=== PATIENT | male | born 1995 | race Hispanic/Latino ===

== ENCOUNTER 2020-03-06 18:46 | Emergency (ER) | payer SELFPAY ==
[2020-03-06] MEDS ORDERED: LIDOCAINE 1% MPF 5 ML VIAL ONE (19:52)
--- NOTE | 2020-03-06 20:05 | ER ---
Nurse's Notes [facility] Name: Pedro Keating Age: 24 yrs Sex: Male : 1995 Arrival Date: 03/06/2020 Time: 18:50 Bed 10 Private MD: Diagnosis: Cutaneous abscess right ear lobe Presentation: 03/06 19:04 Chief complaint: Patient states: FRIDAY MY EARLOBE STARTED HURTING. THEN I NOTICE rv THAT IT IS SWELLING. HURTS MY THROAT TOO. DENIES FEVER AND PAIN INSIDE THE EAR AND AROUND THE EAR. Coronavirus screen: Proceed with normal triage. Ebola Screen: No symptoms or risks identified at this time. Initial Sepsis Screen: Does the patient meet any 2 criteria? No. Patient's initial sepsis screen is negative. Does the patient have a suspected source of infection? No. Patient's initial sepsis screen is negative. Risk Assessment: Do you want to hurt yourself or someone else? Patient reports no desire to harm self or others. Onset of symptoms was March 04, 2020 at 08:00. 19:04 Method Of Arrival: Ambulatory 19:04 Acuity: CHERIE 4 rv Triage Assessment: 19:06 General: Appears comfortable, Behavior is calm, cooperative. Pain: Complains of pain in rv right ear lobe Pain currently is 4 out of 10 on a pain scale. Neuro: Level of Consciousness is awake, alert, obeys commands, Oriented to person, place, time, situation. Cardiovascular: Patient's skin is warm and dry. Respiratory: Airway is patent. Derm: SWELLING OF THE RIGHT EARLOBE. Historical: - Allergies: 19:06 No Known Allergies; rv - Home Meds: 19:06 None [Active]; rv - PMHx: 19:06 None; rv - PSHx: 19:06 None; rv - Immunization history:: Adult Immunizations up to date. - Social history:: Smoking status: unknown. Screenin:36 Abuse screen: Denies threats or abuse. Denies injuries from another. Nutritional rv screening: No deficits noted. Tuberculosis screening: No symptoms or risk factors identified. Fall Risk None identified. Assessment: 20:09 Reassessment: awaiting for the patient's spouse to take him home. rv Vital Signs: 19:02 BP 130 / 72; Pulse 90; Resp 18; Pulse Ox 98% ; Weight 95.25 kg; Height 5 ft. 9 in. rv (175.26 cm); Pain 4/10; 20:08 BP 119 / 79; Pulse 76; Resp 17; Temp 98.9; Pulse Ox 99% on R/A; rv 19:02 Body Mass Index 31.01 (95.25 kg, 175.26 cm) rv ED Course: 18:50 Patient arrived in ED. mr 19:06 Triage completed. rv 19:06 Arm band placed on Patient placed in the treatment room, on a stretcher, Patient rv notified of wait time. 19:19 Frandy Grewal PA is PHCP. jr8 19:19 Sunny Ziegler MD is Attending Physician. jr8 19:36 Samir Maynard, DAVID is Primary Nurse. rv 19:36 Patient has correct armband on for positive identification. Pulse ox on. NIBP on. rv 19:37 Assist provider with I \T\ D: of an abscess on right earlobe Set up I\T\D tray. Performed rv by Frandy ESTRELLA Wound packed. iodoform gauze, Dressing with 4X4s, tape Patient tolerated well. 20:08 Patient did not have IV access during this emergency room visit. rv Administered Medications: 19:46 Drug: Lidocaine (1 %) 5 mg Route: Infiltration; rv 20:08 Follow up: Response: No adverse reaction rv 20:07 Drug: Zofran (Ondansetron) 4 mg Route: PO; rv 20:09 Follow up: Response: Medication administered at discharge. rv 20:08 Drug: morphine 4 mg {Note: rass 0.} Route: IM; Site: left deltoid; rv 20:09 Follow up: Response: Medication administered at discharge. rv Outcome: 20:04 Discharge ordered by . jr8 20:08 Discharged to home ambulatory, with family. rv 20:08 Condition: good 20:08 Discharge instructions given to patient, Instructed on discharge instructions, follow up and referral plans. medication usage, wound care, Demonstrated understanding of instructions, follow-up care, medications, wound care. 20:09 Prescriptions given X 2. rv 20:17 Patient left the ED. rv Signatures: Suzy Lopez mr Frandy Grewal PA PA jr8 Samir Maynard, RN RN rv Corrections: (The following items were deleted from the chart) 19:46 19:37 No provider procedures requiring assistance completed. rv rv 20:08 19:37 Assist provider with I \T\ D: of an abscess on right earlobe Set up I\T\D tray. rv Performed by Frandy ESTRELLA Wound packed. 4X4s, Dressing with 4X4s, tape Patient tolerated well. rv
--- NOTE | 2020-03-06 20:05 | EDPHYS ---
Physician Documentation [facility] [place] Name: Pedro Keating Age: 24 yrs Sex: Male : 1995 Arrival Date: 03/06/2020 Time: 18:50 Bed 10 Private MD: ED Physician Sunny Ziegler HPI: 03/06 20:00 This 24 yrs old Male presents to ER via Ambulatory with complaints of Swollen jr8 Ear Lobe. 20:00 Onset: The symptoms/episode began/occurred gradually, 2 day(s) ago. Associated signs jr8 and symptoms: The patient has no apparent associated signs or symptoms. Modifying factors: The patient symptoms are alleviated by nothing, the patient symptoms are aggravated by movement, touching ear. The patient has not experienced similar symptoms in the past. The patient has not recently seen a physician. Historical: - Allergies: 19:06 No Known Allergies; rv - Home Meds: 19:06 None [Active]; rv - PMHx: 19:06 None; rv - PSHx: 19:06 None; rv - Immunization history:: Adult Immunizations up to date. - Social history:: Smoking status: unknown. ROS: 20:00 Eyes: Negative for injury, pain, redness, and discharge, ENT: Negative for injury, jr8 pain, and discharge, Neck: Negative for injury, pain, and swelling, Cardiovascular: Negative for chest pain, palpitations, and edema, Respiratory: Negative for shortness of breath, cough, wheezing, and pleuritic chest pain, Abdomen/GI: Negative for abdominal pain, nausea, vomiting, diarrhea, and constipation, Back: Negative for injury and pain, MS/Extremity: Negative for injury and deformity, Neuro: Negative for headache, weakness, numbness, tingling, and seizure. 20:00 Skin: Positive for swelling, of the right ear lobe. Exam: 20:00 Head/Face: Normocephalic, atraumatic. Eyes: Pupils equal round and reactive to light, jr8 extra-ocular motions intact. Lids and lashes normal. Conjunctiva and sclera are non-icteric and not injected. Cornea within normal limits. Periorbital areas with no swelling, redness, or edema. Neck: Trachea midline, no thyromegaly or masses palpated, and no cervical lymphadenopathy. Supple, full range of motion without nuchal rigidity, or vertebral point tenderness. No Meningismus. Cardiovascular: Regular rate and rhythm with a normal S1 and S2. No gallops, murmurs, or rubs. Normal PMI, no JVD. No pulse deficits. Respiratory: Lungs have equal breath sounds bilaterally, clear to auscultation and percussion. No rales, rhonchi or wheezes noted. No increased work of breathing, no retractions or nasal flaring. Skin: Warm, dry with normal turgor. Normal color with no rashes, no lesions, and no evidence of cellulitis. MS/ Extremity: Pulses equal, no cyanosis. Neurovascular intact. Full, normal range of motion. Neuro: Awake and alert, GCS 15, oriented to person, place, time, and situation. Cranial nerves II-XII grossly intact. Motor strength 5/5 in all extremities. Sensory grossly intact. Cerebellar exam normal. Normal gait. 20:00 ENT: External ear(s): swelling, that is moderate, of the right ear lobe, Ear canal(s): are normal, TM's: are normal, Nose: is normal, Mouth: is normal, Posterior pharynx: is normal. Vital Signs: 19:02 BP 130 / 72; Pulse 90; Resp 18; Pulse Ox 98% ; Weight 95.25 kg; Height 5 ft. 9 in. rv (175.26 cm); Pain 4/10; 20:08 BP 119 / 79; Pulse 76; Resp 17; Temp 98.9; Pulse Ox 99% on R/A; rv 19:02 Body Mass Index 31.01 (95.25 kg, 175.26 cm) rv Procedures: 20:00 I \T\ D: Incision and drainage was performed for an abscess of the right right ear lobe jr8 Prepped with Betadine, Anesthetized with 2 ml's 1% Lidocaine. Incised with #11 blade. Drained moderate amount purulent fluid. serosanguinous fluid. Loculations removed. Abscess cavity explored. Packed with iodoform gauze, Dressing: sterile 4x4 gauze, the patient tolerated the procedure well. MDM: 19:25 Patient medically screened. jr8 20:00 Data reviewed: vital signs, nurses notes, and as a result, I will discharge patient. 8 Data interpreted: Pulse oximetry: on room air is 98 %. Interpretation: normal. Counseling: I had a detailed discussion with the patient and/or guardian regarding: the historical points, exam findings, and any diagnostic results supporting the discharge/admit diagnosis, the need for outpatient follow up, a family practitioner, to return to the emergency department if symptoms worsen or persist or if there are any questions or concerns that arise at home. 03/06 19:38 Order name: I\T\D Setup; Complete Time: 19:46 jr8 Administered Medications: 19:46 Drug: Lidocaine (1 %) 5 mg Route: Infiltration; rv 20:08 Follow up: Response: No adverse reaction rv 20:07 Drug: Zofran (Ondansetron) 4 mg Route: PO; rv 20:09 Follow up: Response: Medication administered at discharge. rv 20:08 Drug: morphine 4 mg {Note: rass 0.} Route: IM; Site: left deltoid; rv 20:09 Follow up: Response: Medication administered at discharge. rv Disposition: 03/07 00:36 Co-signature as Attending Physician, Sunny Ziegler MD. [email or web address] Disposition: 03/06/20 20:04 Discharged to Home. Impression: Cutaneous abscess right ear lobe . - Condition is Stable. - Discharge Instructions: Skin Abscess, Incision and Drainage. - Prescriptions for Ibuprofen 800 mg Oral Tablet - take 1 tablet by ORAL route every 12 hours As needed take with food; 20 tablet. Bactrim DS 800- 160 mg Oral Tablet - take 1 tablet by ORAL route every 12 hours for 10 days; 20 tablet. - Medication Reconciliation Form, Thank You Letter, Antibiotic Education, Prescription Opioid Use form. - Follow up: Emergency Department; When: 48 Hours; Reason: Wound Recheck, Recheck today's complaints, Continuance of care, Re-evaluation by your physician. - Problem is new. - Symptoms have improved. Signatures: Sunny Ziegler MD MD pkFrandy Wang PA PA jr8 Samir Maynard RN RN rv Corrections: (The following items were deleted from the chart) 03/06 20:17 20:04 03/06/2020 20:04 Discharged to Home. Impression: Cutaneous abscess right ear lobe rv . Condition is Stable. Forms are Medication Reconciliation Form, Thank You Letter, Antibiotic Education, Prescription Opioid Use. Follow up: Emergency Department; When: 48 Hours; Reason: Wound Recheck, Recheck today's complaints, Continuance of care, Re-evaluation by your physician. Problem is new. Symptoms have improved. jr8
[2020-03-06] MEDS ORDERED: MORPHINE 4 MG/ML SYR ONE (20:12)
[2020-03-06] MEDS ORDERED: ONDANSETRON 4 MG (ODT) TAB ONE (20:13)
[2020-03-06 20:25] VITALS: BP 119/79; TEMP 98.9; O2SAT 99
== END 2020-03-06 20:17 | disposition home or self-care (01) ==
LOC: ER 18:46
PROC: 0H92XZZ Drainage of Right Ear Skin, External Approach (ICD-10-PCS; principal; 2020-03-06)
DX: H60.01 Abscess of right external ear (principal)
CPT/HCPCS: 96372; 99284

== ENCOUNTER 2022-07-13 09:55 | Emergency (ER) | payer SELFPAY ==
--- OUTSIDE RECORDS SUMMARY | 2022-07-13 09:58 | XMS REPORT | Continuity of Care Document ---
:1995 Author Organization [facility] t Address [address] [place] [address] Care Team Providers Name Role Phone Pcp, Patient Does Not Have A Primary Care Physician [id number] Emmy Kate Attending Clinician EMMY MOYA Attending Clinician Unavailable Problems Condition Condition Condition Status Onset Resolution Last Treating Co mments Source Name Details Category Date Date Treatment Clinician Date Routine Routine Disease Active Overview: Univ ers infant or infant or 8-10 Formattin i ty of child child 00:00: g of this [facility] 00 note Medical check check might be Branch different from the original. 11 year old Allergies, Adverse Reactions, Alerts Allergy Allergy Status Severity Reaction(s) Onset Inactive Treating Comm ents Source Name Type Date Date Clinician NO KNOWN Drug Active Univers ALLERGIE Class [facility] [place] [facility] Social History Social Habit Start Date Stop Date Quantity Comments Source Exposure to Not sure [facility] SARS-CoV-2 (event) Medica l Branch Sex Assigned At [birth year] [facility] 00:00:00 00:00:00 Medical Branch Smoking Status Start Date Stop Date Source Unknown if ever smoked [facility] Medications Ordered Filled Start Stop Current Ordering Indication Dosage Frequency Signature Comments Components Source Medication Medication Date Date Medication? Clinician (SIG) Name Name sulfamethox 2021- No 1{tbl} 1 tablet, Univers azole-trime 12-01-02 Oral, ONCE i ty of thoprim 03:30: 02:36 NOW, 1 [place] (BACTRIM 00 :00 dose, On Medical DS) 800-160 Fri11/30/21 Br anch mg per at 2230, tablet 1 RIMMA
Re tablet ason for Anti-Infec tive: Documented Infection< br>Documen hunter Infection Site: Skin / Soft Tissue
Duration of Therapy: 7 days lidocaine 2021- No 5mL 5 mL, Univer s 1% 12-01 Infiltrati ity of (XYLOCAINE) 03:00: 03:00 on, ONCE, [place] 10 mg/mL (1 00 :00 1 dose, On Me dical %) Fri11/30/21 Branch injection 5 at 2200, mL RIMMA sulfamethox Yes [id number] 1{tbl} Take 1 Univers azole-trime 11-30 tablet by ity of thoprim 00:00: mouth [place] 800-160 mg 00 every 12 Medic al per tablet (twelve) Branc h hours. acetaminoph 2021- No [id number] 1{tbl} Take 1 U nivers en-codeine 11-30 tablet by ity of 300-30 mg 00:00: 04:59 mouth [place] tablet 00 :00 every 6 Medical (six) Branch hours as needed for Pain (scale 7-10) for up to 7 days. Indication s: acute pain Vital Signs Vital Name Observation Time Observation Value Comments Source Systolic blood 2021-12-01 00:55:00 115 [facility] Diastolic blood 2021-12-01 00:55:00 56 mm[Hg] [facility] rate 2021-12-01 00:55:00 91 /min [facility] Body temperature 2021-12-01 00:55:00 37 Tia [facility] Respiratory rate 2021-12-01 00:55:00 17 /min [facility] Body height 2021-12-01 00:55:00 175.3 cm [facility] Body weight 2021-12-01 00:55:00 83.915 kg [facility] BMI 2021-12-01 00:55:00 27.32 kg/m2 [facility] Oxygen saturation in 2021-12-01 00:55:00 99 /min [facility] Arterial blood by [facility] Pulse oximetry Branch Procedures Procedure Date / Time Performed Performing Clinician Sourc e NOTICE OF PRIVACY 2021-12-01 00:39:46 Doctor Unassigned, No [facility] PRACTICES Name Medical Branch CONSENT/REFUSAL FOR 2021-12-01 00:39:13 [facility], [facility] AND Name Medical Branch TREATMENT Encounters Start End Encounter Admission Attending Care Care Encounter Source Date/Time Date/Time Type Type Clinicians Facility Department ID 2021-11-30 2021-11-30 [id number] Univers 19:59:00 21:45:00 Emmy RM [id number] i [facility] [id number] [facility] [id number] [facility] 084 Branch 2021-11-30 2021-11-30 [facility] E[facility] [id number] Univers 19:59:00 21:45:00 EMMY butt of [facility] Results This patient has no known results.
[2022-07-13 10:14] LABS: Absolute Lymphocytes (CBC) 1.8 K/uL (0.7-4.9); Hematocrit 45.4 % (39.6-49.0); Lymphocytes % 27.8 % (15.3-44.8); MCV 91.1 fL (80-100); MPV 8.4 fL (7.6-11.3); RBC Red Blood Cell Count 4.98 M/uL (4.33-5.43)
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
[2022-07-13 10:30] LABS: Potassium 3.8 mmol/L (3.5-5.1)
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
[2022-07-13 11:33] VITALS: O2SAT 100
[2022-07-13 11:35] VITALS: BP 123/67; TEMP 98.7
== END 2022-07-13 11:08 | disposition home or self-care (01) ==
LOC: ER 09:55
DX: R51.9 Headache, unspecified (principal); M25.561 Pain in right knee; V47.5XXA Car driver injured in collision with fixed or stationary object in traffic accident, initial encounter; F17.210 Nicotine dependence, cigarettes, uncomplicated
CPT/HCPCS: 36415; 70450; 72125; 80048; 85025; 99284

== ENCOUNTER 2023-03-11 10:36 | Emergency (ER) | payer SELFPAY ==
--- OUTSIDE RECORDS SUMMARY | 2023-03-11 10:38 | XMS REPORT | Continuity of Care Document ---
:1995 Author Organization [facility] t Address [address] [place] [address] Care Team Providers Name Role Phone Pcp, Patient Does Not Have A Primary Care Physician +[id number] Emmy Kate Attending Clinician EMMY MOYA Attending Clinician Unavailable Problems Condition Condition Condition Status Onset Resolution Last Treating Co mments Source Name Details Category Date Date Treatment Clinician Date Routine Routine Disease Active Overview: Univ ers infant or or 8-10 Formattin i ty of child child 00:00: g of this [facility] 00 note Medical check check might be Branch different from the original. 11 year old Allergies, Adverse Reactions, Alerts Allergy Allergy Status Severity Reaction(s) Onset Inactive Treating Comm ents Source Name Type Date Date Clinician NO KNOWN Drug Active Univers ALLERGIE Class ity of S [facility] Social History Social Habit Start Date Stop Date Quantity Comments Source Exposure to Not sure [facility] SARS-CoV-2 (event) Medica l Branch Sex Assigned At [birth year] [facility] 00:00:00 00:00:00 Medical Branch Smoking Status Start Date Stop Date Source Unknown if ever smoked [facility] Medications Ordered Filled Start Stop Current Ordering Indication Dosage Frequency Signature Comments Components Source Medication Medication Date Date Medication? Clinician (SIG) Name Name sulfamethox 2021- No 1{tbl} 1 tablet, Univers azole-trime 12-01 Oral, ONCE i ty of thoprim 03:30: 02:36 NOW, 1 [place] (BACTRIM 00 :00 dose, On Medical DS) [...] 5 at 2200, mL RIMMA sulfamethox Yes [id number] 1{tbl} Take 1 Univers azole-trime 11-30 tablet [...] Source Systolic blood 2021-12-01 00:55:00 115 mm[Hg] [facility] Diastolic blood 2021-12-01 00:55:00 56 mm[Hg] [facility] 2021-12-01 00:55:00 91 /min [facility] Body temperature 2021-12-01 00:55:00 37 Tia [facility] Respiratory rate 2021-12-01 00:55:00 17 /min [facility] Body height 2021-12-01 00:55:00 175.3 cm [facility] Body weight 2021-12-01 00:55:00 83.915 kg [facility] BMI 2021-12-01 00:55:00 27.32 kg/m2 Universi ty of [facility] Oxygen saturation in 2021-12-01 00:55:00 99 /min University Arterial blood by [facility] Pulse oximetry Branch Procedures Procedure Date / Time Performed Performing Clinician Sour e NOTICE OF PRIVACY 2021-12-01 00:39:46 Doctor Unassigned, No Univ [facility] PRACTICES Name Medical Branch CONSENT/REFUSAL FOR 2021-12-01 00:39:13 [facility]assigned, [facility] AND Name Medical Branch TREATMENT Encounters Start End Encounter Admission Attending Care Care Encounter Source Date/Time Date/Time Type Type Clinicians Facility Department ID 2021-11-30 2021-11-30 Luiza Moya TNBIMAL [id number] Univers 19:59:00 21:45:00 Emmy RM [id number] i ty [facility] [id number] [facility] [id number] [facility] 084 Branch 2021-11-30 2021-11-30 Emergency X WERO MOYA ERT [id number] Univers 19:59:00 21:45:00 EMMY butt [facility] Results This patient has no known results.
[2023-03-11 11:10] LABS: Absolute Lymphocytes (CBC) 0.7 K/uL (0.7-4.9); Hematocrit 46.8 % (39.6-49.0); MCV 92.1 fL (80-100); MPV 8.6 fL (7.6-11.3); RBC Red Blood Cell Count 5.08 M/uL (4.33-5.43)
[2023-03-11] MEDS ORDERED: NA CHLORIDE 0.9% 1,000 ML ONE (11:11)
[2023-03-11] MEDS ORDERED: FAMOTIDINE 20 MG/2 ML VIAL IV ONE (11:11)
[2023-03-11] MEDS ORDERED: ONDANSETRON 4 MG/2 ML VIAL ONE (11:11)
[2023-03-11] MEDS ORDERED: KETOROLAC 30 MG/ML INJ ONE (11:11)
[2023-03-11 11:23] LABS: Albumin 4.6 g/dL (3.4-5.0); Bilirubin Total 0.9 mg/dL (0.2-1.0); Potassium 3.6 mEq/L (3.5-5.1); Protein, Total 8.1 g/dL (6.4-8.2)
--- NOTE | 2023-03-11 11:31 | RAD REPORT ---
EXAM DESCRIPTION: US - Abdomen Exam Limited - 03/11/2023 11:13 am CLINICAL HISTORY: PAIN COMPARISON: No comparisons FINDINGS: The gallbladder demonstrates no gallstones. No pericholecystic fluid or gallbladder wall t hickening. The common bile duct is normal measuring 2 mm. The liver demonstrates no findings of intrahepatic biliary dilatation. IMPRESSION: Unremarkable examination.
--- NOTE | 2023-03-11 11:43 | ER ---
Nurse's Notes [facility] Name: Pedro Keating Age: 27 yrs Sex: Male : 1995 Arrival Date: 03/11/2023 Time: 10:36 Bed 20 Private MD: Diagnosis: Abdominal pain, Generalized;Nausea with vomiting, unspecified Presentation: 03/11 10:39 Chief complaint: Patient states: he started having abdominal cramping and vomiting this ap3 morning, which woke him from his sleep. patient rates the pain of the cramping a 5/10 on the pain scale. Coronavirus screen: At this time, the client does not indicate any symptoms associated with coronavirus-19. Ebola Screen: No symptoms or risks identified at this time. Initial Sepsis Screen: Does the patient meet any 2 criteria? No. Patient's initial sepsis screen is negative. Does the patient have a suspected source of infection? Yes: Acute abdominal pain. Risk Assessment: Do you want to hurt yourself or someone else? Patient reports no desire to harm self or others. Onset of symptoms was March 11, 2023. 10:39 Method Of Arrival: Ambulatory ap3 10:39 Acuity: CHERIE 3 ap3 Triage Assessment: 10:41 General: Appears in no apparent distress. Behavior is calm, cooperative, appropriate ap3 for age. Pain: Complains of pain in abdomen Pain currently is 5 out of 10 on a pain scale. Quality of pain is described as crampy, Pain began this morning. Neuro: Level of Consciousness is awake, alert, obeys commands, Oriented to person, place, time, situation. Cardiovascular: Patient's skin is warm and dry. Respiratory: Airway is patent Respiratory effort is even, unlabored, Respiratory pattern is regular, symmetrical. GI: Reports diarrhea, nausea, vomiting. Historical: - Allergies: 10:40 No Known Allergies; ap3 - Home Meds: 10:40 None [Active]; ap3 - PMHx: 10:40 anxiety/depression; ap3 - Immunization history:: Client reports receiving the 2nd dose of the Covid vaccine. - Social history:: Smoking status: Patient denies any tobacco usage or history of. Screenin:42 [facility] ED Fall Risk Assessment (Adult) History of falling in the last 3 months, ap3 including since admission No falls in past 3 months (0 pts). Abuse screen: Denies threats or abuse. Nutritional screening: No deficits noted. Tuberculosis screening: No symptoms or risk factors identified. Assessment: 11:17 General: Appears in no apparent distress. uncomfortable, Behavior is calm, cooperative, ld1 appropriate for age. Pain: Complains of pain in abdomen Pain does not radiate. Pain currently is 9 out of 10 on a pain scale. Quality of pain is described as throbbing. Neuro: Level of Consciousness is awake, alert, obeys commands, Oriented to person, place, time, situation. Cardiovascular: Capillary refill < 3 seconds Patient's skin is warm and dry. Rhythm is sinus rhythm. Respiratory: Airway is patent Respiratory effort is even, unlabored. GI: Abdomen is flat, non-distended, Bowel sounds present X 4 quads. Abd is soft Abdomen is tender to palpation X 4 quads. GI: Reports nausea, vomiting. : No signs and/or symptoms were reported regarding the genitourinary system. EENT: No signs and/or symptoms were reported regarding the EENT system. Derm: No signs and/or symptoms reported regarding the dermatologic system. Musculoskeletal: No signs and/or symptoms reported regarding the musculoskeletal system. 11:42 Reassessment: Patient appears in no apparent distress at this time. No changes from ld1 previously documented assessment. Patient and/or family updated on plan of care and expected duration. Pain level reassessed. Patient is alert, oriented x 3, equal unlabored respirations, skin warm/dry/pink. Vital Signs: 10:39 BP 127 / 76; Pulse 76; Resp 17; Temp 98.2; Pulse Ox 100% ; Weight 80.74 kg; Height 5 ap3 ft. 9 in. ; Pain 5/10; 11:17 BP 117 / 52; Pulse 71; Resp 18; Pulse Ox 100% on R/A; Pain 9/10; ld1 11:42 BP 103 / 72; Pulse 70; Resp 18; Pulse Ox 100% on R/A; ld1 10:39 Body Mass Index 26.29 (80.74 kg, 175.26 cm) ap3 10:39 Pain Scale: Adult ap3 11:17 Pain Scale: Adult ld1 ED Course: 10:36 Patient arrived in ED. rg4 10:39 Sae Granda MD is Attending Physician. jr11 10:40 Triage completed. ap3 10:42 Arm band placed on left wrist. ap3 10:54 Jo Castillo, RN is Primary Nurse. ld1 11:00 CBC with Diff Sent. ld1 11:00 CMP Sent. ld1 11:00 Lipase Sent. ld1 11:07 CBC with Diff Sent. ld1 11:07 CMP Sent. ld1 11:07 Lipase Sent. ld1 11:15 Abdomen Limited US In Process Unspecified. EDMS 11:17 Patient has correct armband on for positive identification. Placed in gown. Bed in low ld1 position. Call light in reach. Side rails up X2. Pulse ox on. NIBP on. Door closed. Noise minimized. Warm blanket given. 11:17 No provider procedures requiring assistance completed. Inserted saline lock: 20 gauge ld1 in right antecubital area, using aseptic technique. Blood collected. 11:56 IV discontinued, intact, bleeding controlled, No redness/swelling at site. ld1 Administered Medications: 11:12 Drug: NS 0.9% IV 1000 ml Route: IV; Rate: 1 bolus; Site: right antecubital; ld1 11:12 Drug: Famotidine IVP 20 mg Route: IVP; Site: right antecubital; ld1 11:12 Drug: TORadol - Ketorolac IVP 15 mg Route: IVP; Site: right antecubital; ld1 11:12 Drug: Ondansetron IVP 4 mg Route: IVP; Site: right antecubital; ld1 Medication: 11:17 VIS not applicable for this client. ld1 Outcome: 11:43 Discharge ordered by . jr11 11:56 Discharged to home ambulatory, with family, with friend. ld1 11:56 Condition: stable 11:56 Discharge instructions given to patient, family, Instructed on discharge instructions, follow up and referral plans. medication usage, Demonstrated understanding of instructions, follow-up care, medications, Prescriptions given X 4. 11:56 Patient left the ED. ld1 Signatures: Dispatcher [employer] Elvi Ann rg4 Gayatri Parham RN RN ap3 Jo Castillo, DAVID RN ld1 Sae Granda MD MD jr11
--- NOTE | 2023-03-11 11:44 | EDPHYS ---
Physician Documentation [facility] Name: Pedro Keating Age: 27 yrs Sex: Male : 1995 Arrival Date: 03/11/2023 Time: 10:36 Bed 20 Private MD: ED Physician Sae Granda HPI: 03/11 10:49 This 27 yrs old Male presents to ER via Ambulatory with complaints of jr11 Abdominal Pain, Vomiting. 10:49 The patient presents to the emergency department with nausea, vomiting, x3 today, has jr11 been ill x 4 days . Onset: The symptoms/episode began/occurred 4 day(s) ago. Possible causes: ?bad meat 4 days ago. The symptoms are aggravated by nothing. The symptoms are alleviated by nothing. Associated signs and symptoms: Pertinent positives: abdominal pain, nausea, vomiting, Pertinent negatives: dysuria, hematuria. Severity of symptoms: At their worst the symptoms were moderate in the emergency department the symptoms are unchanged. Pt with crampy RUQ ROSIE pain, no peritonitis . Historical: - Allergies: 10:40 No Known Allergies; ap3 - Home Meds: 10:40 None [Active]; ap3 - PMHx: 10:40 anxiety/depression; ap3 - Immunization history:: Client reports receiving the 2nd dose of the Covid vaccine. - Social history:: Smoking status: Patient denies any tobacco usage or history of. ROS: 10:49 All other systems are negative. jr11 Exam: 10:49 Constitutional: This is a well developed, well nourished patient who is awake, alert, jr11 and in no acute distress. Head/Face: Normocephalic, atraumatic. Eyes: Extra-ocular motions intact. Lids and lashes normal. Conjunctiva and sclera are non-icteric and not injected. Cornea within normal limits. Periorbital areas with no swelling, redness, or edema. ENT: Nares patent. No nasal discharge, no septal abnormalities noted. Oropharynx with no redness, swelling, or masses, exudates, or evidence of obstruction, uvula midline. Mucous membranes moist. Chest/axilla: Normal chest wall appearance and motion. Nontender with no deformity. No lesions are appreciated. Cardiovascular: Regular rate and rhythm with a normal S1 and S2. No gallops, murmurs, or rubs. Normal PMI, no JVD. No pulse deficits. Respiratory: Lungs have equal breath sounds bilaterally, clear to auscultation and percussion. No rales, rhonchi or wheezes noted. No increased work of breathing, no retractions or nasal flaring. Abdomen/GI: ROSIE, RUQ pain, no peritonitis Skin: Warm, dry with normal turgor. Normal color with no rashes, no lesions, and no evidence of cellulitis. MS/ Extremity: Pulses equal, no cyanosis. Neurovascular intact. Full, normal range of motion. Neuro: Awake and alert, GCS 15, oriented to person, place, time, and situation. No gross motor or sensory deficits. Vital Signs: 10:39 BP 127 / 76; Pulse 76; Resp 17; Temp 98.2; Pulse Ox 100% ; Weight 80.74 kg; Height 5 ap3 ft. 9 in. ; Pain 5/10; 11:17 BP 117 / 52; Pulse 71; Resp 18; Pulse Ox 100% on R/A; Pain 9/10; ld1 11:42 BP 103 / 72; Pulse 70; Resp 18; Pulse Ox 100% on R/A; ld1 10:39 Body Mass Index 26.29 (80.74 kg, 175.26 cm) ap3 10:39 Pain Scale: Adult ap3 11:17 Pain Scale: Adult ld1 MDM: 10:44 Patient medically screened. jr11 10:49 Differential diagnosis: Nonspecific abd pain, gastritis, cholecystitis, pancreatitis, jr11 viral gastroenteritis, gastroenteritis. Data reviewed: vital signs, nurses notes. 11:41 ED course: Ultrasound images viewed by me, no gallstones. Patient reassessed, still jr11 having right upper lateral pain, no pain over McBurney's point. Offered CT scan given that his pain still a 4 out of 10, at this point would rather do watchful waiting. Patient had 5 episodes of diarrhea yesterday, 3 this morning, no blood no mucus given the abdominal pain and persistent diarrhea, will treat with Cipro Flagyl for presumed infectious gastroenteritis. Patient given strict return precautions for early appendicitis.. 03/11 10:44 Order name: CBC with Diff; Complete Time: 11:25 [facility] 03/11 10:44 Order name: CMP; Complete Time: 11: [facility] 03/11 10:44 Order name: Lipase; Complete Time: 11:25 03/11 10:44 Order name: Abdomen Limited US; Complete Time: 11:34 03/11 10:44 Order name: IV Saline Lock; Complete Time: 11:00 03/11 10:44 Order name: Labs collected and sent; Complete Time: 11:00 [facility] Administered Medications: 11:12 Drug: NS 0.9% IV 1000 ml Route: IV; Rate: 1 bolus; Site: right antecubital; ld1 11:12 Drug: Famotidine IVP 20 mg Route: IVP; Site: right antecubital; ld1 11:12 Drug: TORadol - Ketorolac IVP 15 mg Route: IVP; Site: right antecubital; ld1 11:12 Drug: Ondansetron IVP 4 mg Route: IVP; Site: right antecubital; ld1 Disposition Summary: 03/11/23 11:43 Discharge Ordered Location: Home [facility] Condition: Stable jr Diagnosis - Abdominal pain, Generalized jr11 - Nausea with vomiting, unspecified jr11 Followup: [facility] - With: Private Physician - When: 2 - 3 days - Reason: Re-evaluation by your physician Discharge Instructions: - Discharge Summary Sheet jr11 - Abdominal Pain, Adult jr11 - Nausea and Vomiting, Adult jr11 Forms: - Medication Reconciliation Form jr11 - Thank You Letter jr11 - Antibiotic Education jr11 - Prescription Opioid Use jr11 - Patient Portal Instructions.[place] [id number] Prescriptions: - Cipro 500 mg Oral Tablet - take 1 tablet by ORAL route every 12 hours for 10 days; 20 tablet; Refills: 0, 11 Product Selection Permitted - Flagyl 500 mg Oral Tablet - take 1 tablet by ORAL route every 8 hours for 10 days; 30 tablet; Refills: 0, jr11 Product Selection Permitted - Zofran 4 mg Oral Tablet - take 1 tablet by ORAL route every 12 hours As needed; 20 tablet; Refills: 0, [facility] Product Selection Permitted - dicyclomine 20 mg Oral Tablet - take 2 tablets by ORAL route 3 times per day; 20 tablet; Refills: 0, Product 11 Selection Permitted Signatures: Dispatcher [employer] Gayatri Meyer RN RN ap3 Jo Castillo RN RN ld1 Sae Granda MD MD [facility]
[2023-03-11 12:10] VITALS: O2SAT 100
[2023-03-11 12:13] VITALS: TEMP 98.2
[2023-03-11 12:14] VITALS: BP 103/72
== END 2023-03-11 11:56 | disposition home or self-care (01) ==
LOC: ER 10:36
DX: R10.84 Generalized abdominal pain (principal); R11.2 Nausea with vomiting, unspecified
CPT/HCPCS: 36415; 76705; 80053; 83690; 85025; 96374; 96375; 99284; J2405; J7030